=== PATIENT | female | born 1995 | race Caucasian/White ===

== ENCOUNTER 2016-09-04 13:43 | Emergency (ER) | payer MEDICAID | END 2016-09-04 16:35 | disposition home or self-care (01) | LOC: D.ER 13:43 | DX: J20.9 Acute bronchitis, unspecified (principal); F17.200 Nicotine dependence, unspecified, uncomplicated ==

== ENCOUNTER 2016-10-17 16:32 | Emergency (ER) | payer MEDICAID | END 2016-10-17 19:04 | disposition home or self-care (01) | LOC: D.ER 16:32 | DX: S60.222A Contusion of left hand, initial encounter (principal); X58.XXXA Exposure to other specified factors, initial encounter; Y93.89 Activity, other specified; Y92.410 Unspecified street and highway as the place of occurrence of the external cause; F17.200 Nicotine dependence, unspecified, uncomplicated ==